=== PATIENT | female | born 1960 | race Caucasian/White ===

== ENCOUNTER 2025-02-21 15:30 | Outpatient (RCR) | payer BC, SELFPAY | END 2025-02-21 16:15 | disposition home or self-care (01) | PROVIDERS: PCP Family Medicine; Visit Provider Nurse Practitioner | DX: Z48.89 Encounter for other specified surgical aftercare (principal); M25.612 Stiffness of left shoulder, not elsewhere classified; M25.611 Stiffness of right shoulder, not elsewhere classified | CPT/HCPCS: 97110; 97140; 97161 ==